=== PATIENT | female | born 1980 | race Caucasian/White ===

== ENCOUNTER 2023-01-29 16:13 | Emergency (ER) | payer BC ==
[~2023-01-29] VITALS: Ht 165.1 cm; Wt 100.0 kg
[~2023-01-29 16:13] MED LIST: NO HOME MEDS
[2023-01-29 17:22] LABS: BASOPHILS # (AUTO) 0.1 X10'3 (0-0.2); BASOPHILS % (AUTO) 0.9 % (0-1); EOSINOPHILS # (AUTO) 0.1 X10'3 (0-0.9); EOSINOPHILS % (AUTO) 1.6 % (0-6); HEMATOCRIT 44.2 % (35.0-45.0); HEMOGLOBIN 15.2 g/dl (12.0-16.0); LYMPHOCYTES # (AUTO) 1.7 X10'3 (1.1-4.8); LYMPHOCYTES % (AUTO) 19.5 % (21-51); MEAN CORPUSCULAR HGB CONC 34.4 g/dL (33.0-36.5); MEAN CORPUSCULAR VOLUME 92.9 FL (78-98); MEAN PLATELET VOLUME 8.7 FL (7.4-10.4); MONOCYTES # (AUTO) 0.5 X10'3 (0-0.9); MONOCYTES % (AUTO) 5.7 % (2-12); NEUTROPHILS # (AUTO) 6.2 X10'3 (1.8-7.7); NEUTROPHILS % (AUTO) 72.3 % (42-75); PLATELET COUNT 256 X10'3 (140-440); RED BLOOD COUNT 4.76 X10'6 (4.20-5.60); RED CELL DISTRIBUTION WIDTH 13.1 % (11.5-14.5); WHITE BLOOD COUNT 8.5 X10'3 (4.5-11.0)
[2023-01-29 17:27] VITALS: BP 103/83
[2023-01-29 17:41] LABS: ALANINE AMINOTRANSFERASE 17 U/L (12-78); ALBUMIN 3.5 G/DL (3.4-5.0); ALBUMIN/GLOBULIN RATIO 0.9 (1.1-1.5); ALKALINE PHOSPHATASE 74 IU/L (46-116); ANION GAP 8 (8-16); ASPARTATE AMINO TRANSFERASE 17 U/L (10-37); BILIRUBIN,TOTAL 0.4 MG/DL (0.1-1.0); BLOOD UREA NITROGEN 13 MG/DL (7-18); BUN/CREATININE RATIO 18.1 (6.6-38.0); CALCIUM 8.6 MG/DL (8.5-10.1); CHLORIDE 105 MMOL/L (99-107); CREATININE 0.72 MG/DL (0.40-0.90); GLUCOSE 90 MG/DL (70-104); POTASSIUM 3.4 MMOL/L (3.5-5.1); SODIUM 138 MMOL/L (135-145); TOTAL CARBON DIOXIDE 25.2 MMOL/L (24-32); TOTAL PROTEIN 7.2 G/DL (6.4-8.2); eGFR 89 ML/MIN
[2023-01-29 17:42] LABS: APTT 28 SECONDS (22-32)
== END 2023-01-29 18:26 | disposition home or self-care (01) ==
LOC: ER 16:14
DX: G62.9 Polyneuropathy, unspecified (principal); G89.29 Other chronic pain; M54.9 Dorsalgia, unspecified; F41.9 Anxiety disorder, unspecified; F12.10 Cannabis abuse, uncomplicated; Z98.890 Other specified postprocedural states; Z79.899 Other long term (current) drug therapy
CPT/HCPCS: 36415; 70450; 71045; 80053; 82948; 84484; 85025; 85610; 85730; 93005; 99285

== ENCOUNTER 2023-04-08 11:30 | Emergency (ER) | payer BC ==
[~2023-04-08] VITALS: Ht 165.1 cm; Wt 100.9 kg
--- NOTE | 2023-04-08 13:36 | NUR ---
PER DR ROSENTHAL NO STROKE WORKUP NEEDED
[2023-04-08] MEDS ORDERED: PRED20TA PO (15:12)
[2023-04-08] MEDS ORDERED: DEXT1DRO6 OP (15:12)
[2023-04-08] MEDS ORDERED: VALA10002 PO (15:12)
[2023-04-08 15:52] VITALS: BP 103/71
== END 2023-04-08 15:54 | disposition home or self-care (01) ==
LOC: ER 11:30
DX: G51.0 Bell's palsy (principal); G89.29 Other chronic pain; M54.9 Dorsalgia, unspecified; F41.9 Anxiety disorder, unspecified; F12.10 Cannabis abuse, uncomplicated; Z90.49 Acquired absence of other specified parts of digestive tract; Z79.899 Other long term (current) drug therapy
CPT/HCPCS: 99283

== ENCOUNTER 2023-05-29 07:09 | Emergency (ER) | payer BC ==
[~2023-05-29] VITALS: Ht 165.1 cm; Wt 90.0 kg
[~2023-05-29 07:09] MED LIST changes: +DEXT1DRO6 OP; +VALA10002 PO
[2023-05-29 07:18] VITALS: BP 123/91
[2023-05-29] MEDS ORDERED: ketorolac trometh inj. 60 MG/2 ML VIAL IM ONE (07:25)
[2023-05-29] MEDS ORDERED: HYDROcodone/acetaminophen 10/325mg tab PO ONE (07:25)
[2023-05-29] MEDS ORDERED: triamcinolone acetonide 40mg/ml inj IM ONE (07:25)
[2023-05-29] MEDS ORDERED: HYDR-3973 PO (07:41)
== END 2023-05-29 09:03 | disposition home or self-care (01) ==
LOC: ER 07:10
DX: R51.9 Headache, unspecified (principal); R53.1 Weakness; R11.2 Nausea with vomiting, unspecified; G89.29 Other chronic pain; G51.0 Bell's palsy; F12.90 Cannabis use, unspecified, uncomplicated; Z90.710 Acquired absence of both cervix and uterus; Z79.2 Long term (current) use of antibiotics; Z79.899 Other long term (current) drug therapy
CPT/HCPCS: 93005; 96372; 99284; J1885; J3301

== ENCOUNTER 2024-01-12 18:32 | Emergency (ER) | payer BC ==
[~2024-01-12] VITALS: Ht 165.1 cm; Wt 105.4 kg
[2024-01-12 21:32] VITALS: BP 142/88; PULSE 82; RESP 16; TEMP 98.2; O2SAT 99
== END 2024-01-12 21:36 | disposition home or self-care (01) ==
LOC: ER 18:33
DX: S91.114A Laceration without foreign body of right lesser toe(s) without damage to nail, initial encounter (principal); X58.XXXA Exposure to other specified factors, initial encounter; Y93.89 Activity, other specified; Y92.89 Other specified places as the place of occurrence of the external cause; Y99.8 Other external cause status
CPT/HCPCS: 12001; 99283; J7030; L3260

== ENCOUNTER 2024-06-01 15:04 | Emergency (ER) | payer BC, MEDICAID ==
[~2024-06-01] VITALS: Ht 165.1 cm; Wt 104.5 kg
[2024-06-01 15:08] VITALS: TEMP 98.4
[2024-06-01] MEDS: dexamethasone sod phosphate 10mg/ml inj IM STA (16:51)
[2024-06-01] MEDS ORDERED: HYDR-3965 PO (18:03)
[2024-06-01] MEDS ORDERED: PRED20TA PO (18:03)
[2024-06-01] MEDS: HYDROcodone/acetaminophen 10/325mg tab PO ONE (18:36)
[2024-06-01 18:37] VITALS: BP 127/72; PULSE 72; RESP 16; O2SAT 98
== END 2024-06-01 18:39 | disposition home or self-care (01) ==
LOC: ER 15:05
DX: M79.2 Neuralgia and neuritis, unspecified (principal); G89.29 Other chronic pain; M54.9 Dorsalgia, unspecified; F12.90 Cannabis use, unspecified, uncomplicated; F41.9 Anxiety disorder, unspecified; F20.9 Schizophrenia, unspecified; Z90.710 Acquired absence of both cervix and uterus; Z90.49 Acquired absence of other specified parts of digestive tract; Z98.890 Other specified postprocedural states; Z79.899 Other long term (current) drug therapy
CPT/HCPCS: 96372; 99283; J1100

== ENCOUNTER 2024-09-21 09:33 | Emergency (ER) | payer MEDICAID ==
[~2024-09-21] VITALS: Ht 165.1 cm; Wt 107.5 kg
[2024-09-21 09:47] VITALS: TEMP 97.5
[2024-09-21] MEDS: diphenhydrAMINE 50 mg/ml inj IV ONE (11:08)
[2024-09-21] MEDS: normal saline 1000ML IV soln IVB ONE (11:08)
[2024-09-21] MEDS: SUMAtriptan succ. 6 MG/0.5ml vial SQ ONE (11:08)
[2024-09-21] MEDS: metoclopramide 5 mg/ml inj IV ONE (11:09)
[2024-09-21] MEDS: ketorolac trometh 15mg/ml vial 15 MG/ML ML IV ONE (11:09)
[2024-09-21] MEDS: proCHLORperazine 10 MG/2 ml inj IV ONE (12:36)
[2024-09-21] MEDS: morphine 4 MG/ML inj SYRINge IV ONE (12:36)
[2024-09-21 13:01] VITALS: BP 133/52; PULSE 75; RESP 20; O2SAT 97
== END 2024-09-21 13:02 | disposition home or self-care (01) ==
LOC: ER 09:33
DX: G43.909 Migraine, unspecified, not intractable, without status migrainosus (principal); F12.90 Cannabis use, unspecified, uncomplicated; F31.9 Bipolar disorder, unspecified; Z90.710 Acquired absence of both cervix and uterus; Z98.890 Other specified postprocedural states
CPT/HCPCS: 96372; 96374; 96375; 99284; J0780; J1200; J1885; J2270; J2765; J3030; J7030

== ENCOUNTER 2025-05-29 11:31 | Emergency (ER) | payer MEDICAID ==
[~2025-05-29] VITALS: Ht 165.1 cm; Wt 113.6 kg
[2025-05-29 11:43] VITALS: BP 161/91; PULSE 76; O2SAT 99
--- NOTE | 2025-05-29 12:57 | Physician Documentation ---
History of Present Illness ~ Chief Complaint: Headache Stated Complaint: MIGRAINE Time Seen by MD: 12:40 Primary Medical Doctor: MARY WHITE HPI 44-year-old female who notes a history of complex migraines and presents today with the same. She denies any new symptoms from her typical presentation. Her symptoms do include some left-sided paresthesia. She has tried her nasal sumatriptan and her scheduled preventative, propranolol at home. These were not helpful. She was last seen in this emergency department for headache September of 2024. Denies any chills or fever, chest pain or shortness of breath. She does endorse nausea. 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 Physical Exam Vital Signs: Temperature: 97.5, Source: Temporal, Heart Rate: 76, Respiratory Rate: 16, BP: 161/91, Pulse Oximetry: 99, Weight: 113.640 Oxygen Flow Rate: 0 Physical Exam General: Alert, appears uncomfortable. HEENT: PERRL, EOMI, no injection, moist mucous membranes. Neck: Full range of motion. Respiratory: Lungs clear, no respiratory distress. Chest: No accessory muscle use. Cardiovascular: Regular rate and rhythm, no murmurs. Gastrointestinal: Soft, nontender, nondistended. Bowels sounds present. Extremities: Normal range of motion, no deformity. Neurologic: Oriented x4. Psychiatric: Normal mood and affect. Skin: Normal color, warm and dry. No edema, no ecchymosis. Progress Progress Note 1455: On re-evaluation, patient reports she feels much better and was ready to discharge. Her symptoms were alleviated with Toradol, prochlorperazine, diphenhydramine. She will be discharged and encouraged to follow up with her primary care provider. If she does not already see a neurologist for evaluation and treatment of her headaches, she may benefit from this referral. Results/Orders Results/Orders Completed Orders - JOVANNY GAMBINO NP Prochlorperazine Inj (Compazine Inj) (05/29/25 12:55) Diphenhydramine Capsule (Benadryl Capsul (05/29/25 12:55) Ketorolac Trometh 30mg/Ml Vial (Toradol (05/29/25 12:55) Medications Received in ER Medications (Trade) Dose Ordered Sig/Rosalba Route PRN Reason Start Time Stop Time Status Last Admin Dose Admin (Compazine inj) 10 mg ONCE ONCE IM 05/29/25 12:55 05/29/25 12:56 DC 05/29/25 13:54 10 MG (Benadryl capsule) 25 mg ONCE ONCE PO 05/29/25 12:55 05/29/25 12:56 DC 05/29/25 13:14 25 MG (Toradol inj. 30mg/ml) 30 mg ONCE ONCE IM 05/29/25 12:55 05/29/25 12:56 DC 05/29/25 13:53 30 MG Vital Signs 05/29/25 05/29/25 11:43 13:53 Temp 97.5 Pulse 76 Resp 16 16 B/P (MAP) 161/91 Pulse Ox 99 O2 Flow Rate 0 Medical Decision Making Differential Dx:Considerations: Include: LAUREANO-Cluster, LAUREANO-Migraine, LAUREANO-Hypertensive, LAUREANO-Muscular contraction, LAUREANO-Post lumbar puncture, Carbon monoxide toxicity, Close head injuyr, CVA, Fever induced, Hemorrhage-Epidural, Hemorrhage-Intracerebral, Hemorrhage-Subarachnoid, Hemorrhage-Subdural, Mass lesion, Meningitis, Post-traumtic, Pseudotumor cerebri, Sinusitis, Temporal arteritis, Trigeminal neuralgia Additional Comment With a history of complex migraines, presents with same today. Symptoms alleviated adequately with Toradol, prochlorperazine, diphenhydramine. Ap propriate for discharge home with primary care follow up at that time. Departure Time of Disposition: 14:56 Disposition: 01 HOME / SELF CARE / HOMELESS Impression: Primary Impression: Migraine Condition: Stable Discharge Instructions: Chronic Migraine Headache, [id number] Additional Instructions: Try the prescribed nurtec as needed. If you don't already see a neurologist, please request a referral from your PCP. Return if worse. Referrals: NO PRIMARY CARE PROVIDER (PCP) Prescriptions Rimegepant Sulfate (Nurtec Odt) 75 Mg Tab.rapdis 1 TAB PO QDAY PRN PRN for migraine for 30 Days, #8 TAB 0 Refills Prov: JOVANNY GAMBINO NP 05/29/25 Education Educated: Patient Educated regarding: diagnosis, treatment, prognosis, need for follow up Signature Scribe Signature: x Attestation: The note accurately reflects work and decisions made by me.Jovanny Ruiz NP 05/29/25 12:57 JOVANNY GAMBINO NP May 29, 2025 12:57
[2025-05-29 13:53] VITALS: RESP 16
[2025-05-29] MEDS: ketorolac trometh 30MG/ML vial 30 MG/ML VIAL IM ONE (13:53)
[2025-05-29] MEDS ORDERED: RIME75TA PO (14:57)
[2025-05-29 15:07] VITALS: TEMP 97.5
== END 2025-05-29 15:09 | disposition home or self-care (01) ==
LOC: ER 11:32
DX: G43.909 Migraine, unspecified, not intractable, without status migrainosus (principal); F12.90 Cannabis use, unspecified, uncomplicated; F41.9 Anxiety disorder, unspecified; F31.9 Bipolar disorder, unspecified; Z90.710 Acquired absence of both cervix and uterus; Z98.890 Other specified postprocedural states; Z79.899 Other long term (current) drug therapy
CPT/HCPCS: 96372; 99284; J0780; J1885; Q0163

== ENCOUNTER 2025-09-21 11:15 | Emergency (ER) | payer MEDICAID ==
[~2025-09-21] VITALS: Ht 165.1 cm; Wt 113.8 kg
[~2025-09-21 11:15] MED LIST changes: +RIME75TA PO
[2025-09-21 11:22] VITALS: TEMP 98.8
[2025-09-21] MEDS: normal saline 1000ml 1,000 ML IV ONE (15:06)
[2025-09-21] MEDS: ketorolac trometh 15mg/ml vial 15 MG/ML ML IV ONE (15:06)
[2025-09-21] MEDS: metoclopramide 5 mg/ml inj IV ONE (15:07)
--- NOTE | 2025-09-21 15:53 | Physician Documentation ---
History of Present Illness ~ Chief Complaint: Headache Stated Complaint: MIGRAINE Time Seen by MD: 13:59 Primary Medical Doctor: MARY GILL PALOMOSTUART HPI Is a 45-year-old female that presents to the emergency department for evaluation of a migraine headache. Patient reports he has a significant history of migraine headaches and this episode is consistent with her previous episodes. Patient reports that she does take medication regularly for migraines but today she is having a breakthrough migraine. Patient denies any other symptoms at this time. 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 Physical Exam Vital Signs: Temperature: 98.8, Source: Temporal, Heart Rate: 85, Respiratory Rate: 14, BP: 130/83, Pulse Oximetry: 100, Weight: 113.800 Oxygen Flow Rate: 0 Physical Exam VITALS: Reviewed and as above. GENERAL: Alert, no apparent distress. HEENT: Normocephalic, atraumatic, PERRL, EOMI, dry mucosa, no erythema RESPIRATORY: Lungs clear, normal breath sounds, no respiratory distress. CHEST: No accessory muscle use, no retractions CV: Regular rate, rhythm, no edema, no murmur, No: JVD GI: Soft, non-tender, bowels sounds present, no rebound, guarding, or rigidity BACK: No CVA tenderness, or swelling MUSCULOSKELETAL No deformities, no edema SKIN: Warm and dry, no rash NEURO: Oriented x4, No motor or sensory deficit, patient demonstrates sensit ivity to light during examination, patient reports this is consistent with her typical migraine presentation. PSYCH: Normal mood and affect, no agitation Progress Results/Orders Results/Orders Orders - JEVON COX * Iv Access / Saline Lock * (09/21/25 14:19) Acetaminophen 1,000mg/100ml Iv (Ofirmev (09/21/25 20:00) Completed Orders - JEVON COX NETWORK OPERATIONS MANAGER Ketorolac Trometh 15mg/Ml Vial (Toradol (09/21/25 14:20) Metoclopramide Inj (Reglan Inj) (09/21/25 14:20) Diphenhydramine Inj (Benadryl Inj.) (09/21/25 14:20) Normal Saline 1000ml (0.9% Sodium Chlori (09/21/25 14:20) Medications Received in ER Medications (Trade) Dose Ordered Sig/Rosalba Route PRN Reason Start Time Stop Time Status Last Admin Dose Admin (Toradol injection) 30 mg ONCE ONCE IV 09/21/25 14:20 09/21/25 14:22 DC 09/21/25 15:06 30 MG (Reglan inj) 10 mg ONCE ONCE IV 09/21/25 14:20 09/21/25 14:22 DC 09/21/25 15:07 10 MG (Benadryl inj.) 25 mg ONCE ONCE IV 09/21/25 14:20 09/21/25 14:22 DC 09/21/25 15:07 25 MG Sodium Chloride 1,000 ml @ 1,000 mls/hr ONCE ONCE IV 09/21/25 14:20 09/21/25 15:19 DC 09/21/25 15:06 1,000 MLS/HR Vital Signs 09/21/25 09/21/25 11:22 15:06 Temp 98.8 Pulse 85 Resp 16 14 B/P (MAP) 130/83 Pulse Ox 100 O2 Flow Rate 0 Medical Decision Making Additional information obtaine: other Findings 45-year-old female with a history of migraines presented to the ED with a severe, intractable migraine unresponsive to her usual home medications. Initial assessment confirmed typical migraine features (throbbing pain, photophobia, phonophobia, nausea) without focal neurologic deficits or red flag symptoms (abrupt onset, age ?50, cancer, immunosuppression, headache provoked by activity/posture). Acute management included a standard ED migraine cocktail: intravenous metoclopramide, diphenhydramine, ketorolac, acetaminophen, and IV fluids. This regimen is supported by current emergency medicine guidelines and literature, which recommend non-opioid therapies and antiemetics for acute migraine, with opioids discouraged due to risk of medication overuse and poor efficacy. The patient experienced significant improvement in symptoms following treatment. No evidence of secondary headache or complications was identified. Patient was counseled on red flag symptoms (sudden severe headache, persistent neurologic deficits, fever, neck stiffness, altered mental status) and instructed to return to the ED if these occur.She was advised to follow up with her primary care provider for ongoing migraine management, including consideration of preventive therapy if attacks remain frequent or disabling. Discharge instructions included education on medication overuse headache, importance of early treatment at onset, and lifestyle modifications (hydration, regular meals, sleep hygiene, exercise, stress management).[6] No new prescriptions were provided at discharge, as symptoms resolved, but outpatient review of acute and preventive options (NSAIDs, triptans, gepants, preventive agents) is recommended if attacks persist. Patient is stable for discharge. Return precautions and follow-up plan discussed and documented. Differential Dx:Considerations: Include: LAUREANO-Cluster, LAUREANO-Migraine, LAUREANO- Hypertensive, LAUREANO-Muscular contraction, LAUREANO-Post lumbar puncture, Carbon monoxide toxicity, Close head injuyr, CVA, Fever induced, Hemorrhage-Epidural, Hemorrhage-Intracerebral, Hemorrhage-Subarachnoid, Hemorrhage-Subdural, Mass lesion, Meningitis, Post-traumtic, Pseudotumor cerebri, Sinusitis, Temporal arteritis, Trigeminal neuralgia, Other Departure Disposition: 01 HOME / SELF CARE / HOMELESS Impression: Primary Impression: Headache Additional Impression: Migraine Discharge Instructions: Headache, Chronic Migraine Headache, [id number] Additional Instructions: You were treated in the emergency department today for a severe migraine. Your symptoms improved after receiving medications and fluids. Please review the following instructions to help manage your migraines and know when to seek further care. 1. Migraine Management at Home Take your prescribed migraine medications as soon as you feel a migraine starting. Early treatment works best. Common medications include acetaminophen (Tylenol), nonsteroidal anti- inflammatory drugs (NSAIDs) like ibuprofen or naproxen, and migraine-specific medications such as triptans (sumatriptan, eletriptan) or newer options like gepants (ubrogepant). If you have nausea or vomiting, anti-nausea medicines may help. Do not use opioid pain medications or medicines containing butalbital for migrainethey can cause more headaches and other problems. 2. Preventing Future Migraines Keep a headache diary to track your symptoms, triggers, and how well treatments work. Avoid known triggers such as certain foods, dehydration, skipping meals, poor sleep, and stress. Stay hydrated, eat regular meals, get enough sleep, and exercise regularly. If you have frequent or severe migraines, talk to your primary care provider about preventive medications. 3. Medication Overuse Warning Using pain medicines (like NSAIDs or triptans) too often can cause more headaches. If you need these medicines more than 10-15 days per month, let your doctor know. 4. When to Seek Immediate Medical Care Return to the emergency department or call 911 if you have any of these warning signs: Sudden, severe headache (worst headache of your life) Headache with fever, neck stiffness, or rash Headache after a head injury Persistent vomiting or confusion Weakness, numbness, trouble speaking, vision changes, or fainting. 5. Follow-Up Schedule a follow-up visit with your primary care provider to review your migraine treatment plan and discuss preventive options if needed. If you have any questions or your symptoms return or worsen, please contact your doctor or return to the emergency department. Referrals: NO PRIMARY CARE PROVIDER (PCP) Education Educated: Patient Educated regarding: diagnosis, treatment, need for follow up Signature Scribe Signature: A Attestation: Scribed for Jevon Cox by MARÍA Hawthorne . 09/21/25 15:53 JEVON COX Sep 21, 2025 15:53
[2025-09-21] MEDS: acetaminophen 1,000mg/100ml IV 100 ML IV SCH (16:34)
[2025-09-21 16:42] VITALS: BP 115/62; PULSE 65; RESP 20; O2SAT 100
== END 2025-09-21 16:43 | disposition home or self-care (01) ==
LOC: ER 11:16
DX: G43.909 Migraine, unspecified, not intractable, without status migrainosus (principal); F31.9 Bipolar disorder, unspecified; F41.9 Anxiety disorder, unspecified; F12.90 Cannabis use, unspecified, uncomplicated; Z90.710 Acquired absence of both cervix and uterus; Z98.890 Other specified postprocedural states
CPT/HCPCS: 96361; 96374; 96375; 99284; J1200; J1885; J2765; J7030

== ENCOUNTER 2025-10-19 16:12 | Outpatient (CLI) | payer MEDICAID ==
--- NOTE | 2025-10-19 18:39 | RADIOLOGY REPORT ---
EXAM: MR MRI LOWER EXTREMITY LEFT HISTORY: PAIN IN LEFT KNEE;CHONDROMALACIA, LEFT KNEE COMPARISON: None TECHNIQUE: Multiplanar, multisequence imaging of the left knee was performed without contrast FINDINGS: MEDIAL COMPARTMENT: Intact medial meniscus. No focal chondrosis or subchondral edema. LATERAL COMPARTMENT: Intact lateral meniscus. No focal chondrosis or subchondral edema. PATELLOFEMORAL COMPARTMENT: Tibial tubercle trochlear groove distance measures 17 mm. Overall correlate with clinical exam to exclude trace patellar maltracking (patellar tendon lateral femoral condylar friction syndrome). No focal chondrosis or subchondral edema. CRUCIATE LIGAMENTS: Intact anterior and posterior cruciate ligaments. MEDIAL SUPPORTING STRUCTURES: Intact medial collateral ligament. LATERAL SUPPORTING STRUCTURES: Intact iliotibial band, lateral capsular ligament, fibular collateral ligament, popliteus, and biceps femoris tendons EXTENSOR MECHANISM: Intact JOINT SPACE/FLUID: Trace knee joint fluid. BONES: No acute fracture, osseous contusion, or aggressive focal osseous lesion MUSCLES: Trace amount of edema of the superolateral aspect of Hoffa's fat pad. Normal in signal intensity and morphology NEUROVASCULAR: Unremarkable OTHER: None IMPRESSION: 1. Trace amount of edema of the superolateral aspect of Hoffas fat pad. 2. Overall correlate with clinical exam to exclude trace patellar maltracking (patellar tendon lateral femoral condylar friction syndrome). 3. No meniscal or cruciate ligamentous injury.
== END 2025-10-19 23:59 | disposition home or self-care (01) ==
LOC: MRI02 16:12
PROVIDERS: ATTEND Pediatrics Sports Medicine
DX: M25.562 Pain in left knee (principal); M25.561 Pain in right knee; M94.261 Chondromalacia, right knee; M94.262 Chondromalacia, left knee
CPT/HCPCS: 73721

== ENCOUNTER 2025-10-31 15:34 | Inpatient (IN) | payer MEDICAID ==
[~2025-10-31] VITALS: Ht 165.1 cm; Wt 108.5 kg
--- NOTE | 2025-10-31 16:00 | ELECTROCARDIOGRAPH REPORT ---
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
--- NOTE | 2025-10-31 16:06 | RADIOLOGY REPORT ---
CT CT STROKE ALERT INDICATION: Stroke Alert EXAM DATE: 10/31/2025 03:39 PM COMPARISON: CT STROKE ALERT on DOS: 01/29/23 TECHNIQUE: CT of the head without intravenous contrast. RADIATION DOSE: CTDIvol: 58 mGy, DLP: 1185 mGy*cm FINDINGS: There is no intracranial hemorrhage. There is no extra-axial fluid, mass, mass effect or midline shift. The ventricles are midline and normal in size. Basilar cisterns are patent. Marquez-white differentiation is maintained. Mastoids well pneumatized. Left maxillary sinus mucosal thickening. Severe right maxillary sinus mucosal thickening and retention cyst/polyps.. Imaged portion of the orbits are unremarkable. IMPRESSION: No intracranial hemorrhage or mass effect. Paranasal sinus disease.
[2025-10-31 16:12] LABS: MEAN PLATELET VOLUME 9.1 FL (7.4-10.4); RED CELL DISTRIBUTION WIDTH 13.4 % (11.5-14.5)
[2025-10-31] MEDS: normal saline 1000ml 1,000 ML IV ONE (16:22)
[2025-10-31] MEDS: ketorolac trometh 15mg/ml vial 15 MG/ML ML IV ONE (16:22)
--- NOTE | 2025-10-31 16:26 | RADIOLOGY REPORT ---
EXAM: DI CHEST,SINGLE VIEW TECHNIQUE: Single frontal chest radiograph CLINICAL HISTORY: Stroke Alert COMPARISON: CHEST,SINGLE VIEW on DOS: 01/29/23 FINDINGS/IMPRESSION: The lungs are clear. The cardiomediastinal silhouette is unchanged. No pleural effusion or pneumothorax. No acute osseous abnormality.
[2025-10-31 16:29] LABS: APTT 29 SECONDS (22-32); INR 1.0 INR
[2025-10-31 16:55] LABS: CREATININE 1.11 MG/DL (0.40-0.90); TOTAL CARBON DIOXIDE 25.2 MMOL/L (24-32); eCRCL 58 ML/MIN; eGFR 53 ML/MIN
--- NOTE | 2025-10-31 16:57 | Physician Documentation ---
History of Present Illness ~ Chief Complaint: Stroke Alert Stated Complaint: DIZZINESS Time Seen by MD: 15:50 OK to notify your PCP?: Yes Primary Medical Doctor: MARY WHITE Mode of Arrival: POV, Ambulatory HPI A 45 years old female with history of hemiplegic migraines presented to the ER with dizziness which was started around 2:00 p.m. today afternoon. 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 Patient denies any fall or loss of consciousness. Denies any alcohol intake or drug use. Patient denies any spinning sensation or tinnitus. She has taking Botox injections for hemiplegic migraine once in a month. Medication Reconciliation Allergies: Coded Allergies: No Known Allergies (Unverified , 09/21/25) Scheduled Atomoxetine HCl (Atomoxetine HCl), 1 CAP PO QAM, (Reported) Cariprazine Hydrochloride (Vraylar), 1 CAP PO DAILY, (Reported) Diclofenac Sodium (Diclofenac Sodium), 1 TAB PO BID, (Reported) Escitalopram Oxalate (Escitalopram Oxalate), 20 MG PO DAILY, (Reported) Lisdexamfetamine Dimesylate (Vyvanse), 1 CAP PO QAM, (Reported) Meloxicam (Meloxicam), 1 TAB PO DAILY, (Reported) Spironolactone (Spironolactone), 1 TAB PO BID, (Reported) Scheduled PRN Prazosin Hcl (Prazosin Hcl), 2-3 CAP PO HS PRN for insomnia, (Reported) Propranolol Hcl (Propranolol Hcl), 1 TAB PO TID PRN for panic attack, (Reported) Rimegepant Sulfate (Nurtec Odt), 1 TAB PO QDAY PRN PRN for migraine [lorazepam], 0.5 MG PO TID PRN for anxiety, (Reported) Miscellaneous Medications Lamotrigine (LaMICtal tablet), PO, (Reported) Discontinued Medications Dextran 70/Hypromellose (Artificial Tears), 1 EACH OP Q2H Discontinued Reason: Other Valacyclovir HCl (Valtrex), 1 TAB PO TID Discontinued Reason: patient no longer taking Past Medical History 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*, Chronic Back Pain, Anxiety, Bipolar Other Past Medical History: Hemiplegic migraines, anxiety, depression Past Surgical History: hysterectomy, tonsillectomy Other Past Surgical History: ovarian cyst removal, sinus cyst removal, hysterectomy Alcohol Use: Rarely Drug Use: marijuana Lives with: Family Lives In: Home Physical Exam Vital Signs: Temperature: 98.6, Source: Oral, Heart Rate: 72, Respiratory Rate: 14, BP: 149/96, Pulse Oximetry: 98, Weight: 108.500 Oxygen Flow Rate: 0 Physical Exam Awake , alert and oriented to time,place, person,not in distress HEENT: Atraumatic, normocephalic, PERRLA, EOMI, anicteric sclera ; pink c onjunctiva, moist mucos membranes Neck: Trachea midline. Supple, normal range of motion, no JVD, no lymphadenopathy Chest and Respiratory: Equal breath sounds bilaterally, no tachypnea, wheezing, ronchi,rubs .Chest wall is symmetric and without deformity. Cardiac: S1, S2 heard,Regular rate and rhythm, no murmurs ,no gallops, no rubs. Abdomen: Soft, No tenderness, No guarding or rigidity, Lyle's sign negative. normal bowel sounds x4 quadrant, no hepatosplenomegaly MSK: Range of motion of all extremities are normal. There is no joint pain or joint swelling or joint erythema. There is no muscle pain or tenderness or swelling. Extremities: warm, well-perfused, No cyanosis, clubbing, 2+ pulses felt Neurological: Mental status exam: alert and consciousness, orientation, memory, speech - Cranial nerve test: Cranial nerves II-XII intact. - Motor system: Normal Nutrition, normal tone, Power 5/5, no involuntary movements - Sensory system: Intact - Reflex testing: Biceps, triceps and knee reflexes 2+ - Cerebellar: Normal Skin: Warm and dry Psychiatry: Affect and mood are normal Progress Progress Note A 45 years old female with history of hemiplegic migraines presented to the ER with dizziness which was started around 2:00 p.m. today afternoon. 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 Patient denies any fall or loss of consciousness. Denies any alcohol intake or drug use. CT head Showed no acute intracranial abnormality. IV normal saline 1000 mL bolus, IV Compazine and IV Toradol was given .Teleneurology was consulted Results/Orders Results/Orders Orders - JJ BOLANOS MD Monitor (10/31/25 15:44) 2 Large Bore Ivs (10/31/25 15:44) Chest,Single View (10/31/25 15:44) Accucheck (10/31/25 15:44) Ct Stroke Alert (10/31/25 15:53) [place] [facility] Consult (10/31/25 15:44) Page Hospitalist (10/31/25 17:11) Fill Out Med Reconciliation (10/31/25 17:11) Completed Orders - JJ BOLANOS MD Cbc/Diff (10/31/25 15:44) Electrocardiogram (10/31/25 15:44) Chest,Single View (10/31/25 15:44) Ct Stroke Alert (10/31/25 15:53) BMP (10/31/25 15:44) PTT (10/31/25 15:44) Pt Inr (10/31/25 15:44) Hs Troponin I W Calculations (10/31/25 15:44) [place] [facility] Consult (10/31/25 15:44) Drug Screen, Urine (10/31/25 15:44) Laboratory Tests Test 10/31/25 15:41 10/31/25 16:01 Glucometer 122 H White Blood Count 9.0 Red Blood Count 4.89 Hemoglobin 15.4 Hematocrit 44.3 Mean Corpuscular Volume 90.7 Mean Corpuscular Hemoglobin 31.5 H Mean Corpuscular Hemoglobin Concent 34.8 Red Cell Distribution Width 13.4 Platelet Count 258 Mean Platelet Volume 9.1 Neutrophils (%) (Auto) 78.0 H Lymphocytes (%) (Auto) 13.8 L Monocytes (%) (Auto) 5.9 Eosinophils (%) (Auto) 1.4 Basophils (%) (Auto) 0.9 Neutrophils # (Auto) 7.0 Lymphocytes # (Auto) 1.2 Monocytes # (Auto) 0.5 Eosinophils # (Auto) 0.1 Basophils # (Auto) 0.1 CBC Comment Prothrombin Time 10.5 INR International Normalized Ratio 1.0 Activated Partial Thromboplast Time 29 Coagulation Comments Sodium Level 137 Potassium Level 3.4 L Chloride Level 102 Carbon Dioxide Level 25.2 Anion Gap 10 Blood Urea Nitrogen 13 Creatinine 1.11 H Estimated GFR/1.73 m2 53 BUN/Creatinine Ratio 11.7 Glucose Level 112 H Calcium Level 8.9 Troponin I High Sensitivity < 4 L Troponin I High Sens Percent Delta Troponin I Hi Sens Absolute Change Albumin 3.6 Chemistry Comments EKG/XRAY/CT/US/VASC/MRI EKG : Additional Comment * * EKG as interpreted by [facility] indicating normal sinus rhythm with a rate of 79 bpm, no ischemia, normal axis Chest X-Ray : Interpreted By: both Lungs: normal Mediastinum: normal Ribs/Bones: normal Impression: no acute disease Additional Comments EXAM: DI CHEST,SINGLE VIEW TECHNIQUE: Single frontal chest radiograph CLINICAL HISTORY: Stroke Alert COMPARISON: CHEST,SINGLE VIEW on DOS: 01/29/23 FINDINGS/IMPRESSION: The lungs are clear. The cardiomediastinal silhouette is unchanged. No pleural effusion or pneumothorax. No acute osseous abnormality. : Impression CT CT STROKE ALERT INDICATION: Stroke Alert EXAM DATE: 10/31/2025 03:39 PM COMPARISON: CT STROKE ALERT on DOS: 01/29/23 TECHNIQUE: CT of the head without intravenous contrast. RADIATION DOSE: CTDIvol: 58 mGy, DLP: 1185 mGy*cm FINDINGS: There is no intracranial hemorrhage. There is no extra-axial fluid, mass, mass effect or midline shift. The ventricles are midline and normal in size. Basilar cisterns are patent. Marquez-white differentiation is maintained. CT CTA NECK/HEAD INDICATION: left side weakness and facial droop TECHNIQUE: CT angiography along with MIP and MPR images were obtained of the [place] arteries. CT angiography along with MIP and MPR images were obtained of the cervical carotid and vertebral arteries. All CT scans at this facility use dose modulation, iterative reconstruction, and/or weight based dosing when appropriate to reduce radiation dose to as low as reasonably achievable. 3-D postprocessing was performed on a separate workstation under radiologist supervision. IV CONTRAST: 100 mL of low osmolar intravenous iodinated contrast material was administered. COMPARISON: None FINDINGS: ANTERIOR CIRCULATION: Distal internal carotid arteries including the petrous, cavernous, and supraclinoid segments are patent bilaterally.Anterior cerebral arteries including the A1 and A2 segments are patent bilaterally.Anterior communicating artery patent without aneurysm formation.Middle cerebral arteries including the horizontal M1 and sylvian M2 are patent bilaterally.Congenitally absent versus hypoplastic posterior communicating arteries. POSTERIOR CIRCULATION: Posterior cerebral arteries are patent bilaterally.Vertebral arteries are codominantThe intracranial segments of the vertebral arteries are patent bilaterally.The basilar artery is patent without aneurysm formation.The posterior inferior cerebellar arteries are patent bilaterally. CERVICAL VESSELS: The thoracic aortic arch is patent without evidence of aneurysmal dilatation or dissection.The right common carotid artery, carotid bulb, and cervical segment of the right internal carotid artery are patentThe left common carotid artery, carotid bulb, and cervical segment of the left internal carotid artery are patentThe cervical segments of the vertebral arteries are patent OTHER: The lung apices are clear. Left thyroid lobe nodule/enlargement measuring up to 2.8 cm and consider nonemergent left ultrasound of the thyroid. Question sequelae of prior right maxillary antrostomy mild less than 25 percent opacification of the [id number]-[id number]-[id number]-left maxillary sinuses. IMPRESSION: 1. No large vessel occlusion, aneurysmal dilatation, or dissection seen within the intracranial vessels. 2. No hemodynamically significant stenosis, aneurysmal dilatation, or dissection seen within the cervical vessels. 3. No CT evidence of an acute intracranial process. 4. Left thyroid lobe nodule/enlargement measuring up to 2.8 cm and consider nonemergent left ultrasound of the thyroid. Mastoids well pneumatized. Left maxillary sinus mucosal thickening. Severe right maxillary sinus mucosal thickening and retention cyst/polyps.. Imaged portion of the orbits are unremarkable. IMPRESSION: No intracranial hemorrhage or mass effect. Paranasal sinus disease. Medical Decision Making Additional information obtaine: N/A Findings CT head- no acute intracranial abnormality CTA head and neck Chest x-ray 2 large-bore IVs CBC BMP PT INR APTT Troponins Teleneurology consultation Urine drug screen Differential Dx:Considerations: Include: electrolyte imbalance, hypoglycemia, hypotension, vertigo peripheral Additional Information Differentials include: Hemiplegic migraine, stroke, dizziness, orthostatic hypotension 45-year-old female presenting with a likely hemiplegic migraine. She was assessed by telling neurology in the ED. They assess that this is likely a hemiplegic migraine however CVA and TIA need to be ruled out. Her labs and imaging including CT head and CT angiogram of the head and neck were both unremarkable. Patient will be admitted to the hospitalist service with neurology consultation. Departure Disposition: ADMITTED INPATIENT Admitted to Inpatient Unit: to hospitalist Admission Level of Care: Neuro with Tele Impression: Primary Impression: Dizziness Additional Impressions: Left-sided weakness Hemiplegic migraine Condition: Guarded Referrals: NO PRIMARY CARE PROVIDER (PCP) Signature Scribe Signature: No Scribe Attestation: Resident attestation Patient was seen, examined and discussed with the attending physician Bjorn Seo MD Internal Medicine Resident, PGY 1 I saw and discussed the patient with the resident. The note accurately reflects work and decisions made by me.Jj Ruiz MD 11/06/25 13:19 ROMINA SEO, RES Oct 31, 2025 16:57 JJ BOLANOS MD Oct 31, 2025 17:38
--- NOTE | 2025-10-31 17:37 | RADIOLOGY REPORT ---
CT CTA NECK/HEAD INDICATION: left side weakness and facial droop TECHNIQUE: CT angiography along with MIP and MPR images were obtained of the [place] arteries. CT angiography along with MIP and MPR images were obtained of the cervical carotid and vertebral arteries. All CT scans at this facility use dose modulation, iterative reconstruction, and/or weight based dosing when appropriate to reduce radiation dose to as low as reasonably achievable. 3-D postprocessing was performed on a separate workstation under radiologist supervision. IV CONTRAST: 100 mL of low osmolar intravenous iodinated contrast material was administered. COMPARISON: None FINDINGS: ANTERIOR CIRCULATION: Distal internal carotid arteries including the petrous, cavernous, and supraclinoid segments are patent bilaterally.Anterior cerebral arteries including the A1 and A2 segments are patent bilaterally.Anterior communicating artery patent without aneurysm formation.Middle cerebral arteries including the horizontal M1 and sylvian M2 are patent bilaterally.Congenitally absent versus hypoplastic posterior communicating arteries. POSTERIOR CIRCULATION: Posterior cerebral arteries are patent bilaterally.Vertebral arteries are codominantThe intracranial segments of the vertebral arteries are patent bilaterally.The basilar artery is patent without aneurysm formation.The posterior inferior cerebellar arteries are patent bilaterally. CERVICAL VESSELS: The thoracic aortic arch is patent without evidence of aneurysmal dilatation or dissection.The right common carotid artery, carotid bulb, and cervical segment of the right internal carotid artery are patentThe left common carotid artery, carotid bulb, and cervical segment of the left internal carotid artery are patentThe cervical segments of the vertebral arteries are patent OTHER: The lung apices are clear. Left thyroid lobe nodule/enlargement measuring up to 2.8 cm and consider nonemergent left ultrasound of the thyroid. Question sequelae of prior right maxillary antrostomy mild less than 25 percent opacification of the mswyy-ocosjls-jhbw-left maxillary sinuses. IMPRESSION: 1. No large vessel occlusion, aneurysmal dilatation, or dissection seen within the intracranial vessels. 2. No hemodynamically significant stenosis, aneurysmal dilatation, or dissection seen within the cervical vessels. 3. No CT evidence of an acute intracranial process. 4. Left thyroid lobe nodule/enlargement measuring up to 2.8 cm and consider nonemergent left ultrasound of the thyroid.
[2025-10-31] MEDS ORDERED: mag hydrox/Alum hydrox/simeth 30ml oral suspension PO PRN (17:40)
[2025-10-31] MEDS ORDERED: magnesium sulf-water 2g/50mL 50 ML IV PRN (17:40)
[2025-10-31] MEDS ORDERED: magnesium sulf-water 4G/100mL 100 ML IV PRN (17:40)
[2025-10-31] MEDS ORDERED: potassium Cl 20 mEq SR tablet PO PRN (17:40)
[2025-10-31] MEDS ORDERED: ondansetron/PF 4mg/2ml inj IV PRN (17:40)
[2025-10-31] MEDS ORDERED: potassium Cl 40MEQ/1/2NS 520ml 520 ML IV PRN (17:40)
--- NOTE | 2025-10-31 18:29 | HISTORY AND PHYSICAL ---
History & Physical Providers to CC ~ History of Present Illness Reason for Admit\Complaint: Left hemiplegia History of Present Illness This is a 45-year-old female who has a four year history of hemiplegic migraine headaches. She gets a couple of episodes a month they typically last 15 minutes to a few hours she is to the point where she is getting Botox injections for these headaches monthly. The patient has not noticed today's symptoms are slightly different than her typical headaches for one she does not have a headache with the episode she also mentions that she typically has a numbness on the left side of her face and that her extremities are not affected (accept for one prior episode) today the headache started at 2:00 p.m. and is affecting the left side of her face where she noticed initially noticed itching and then pins and needle sensation followed by inability open her left eye as well as a weakness in her left upper and lower extremity which has persisted. The patient is also mentioned that the onset of her symptoms today were faster than her prior episodes. Tele neurologist evaluated the patient and recommended ordering an MRI of the head. A CTA of the head is negative for any acute CVA. Allergies: Coded Allergies: No Known Allergies (Unverified , 09/21/25) Home Medications Home Medications Active Nurtec Odt (Rimegepant Sulfate) 75 Mg Tab.rapdis 1 Tab PO QDAY PRN PRN 30 Days Valtrex (Valacyclovir HCl) 1,000 Mg Tablet 1 Tab PO TID 7 Days Artificial Tears (Dextran 70/Hypromellose) 1 Each Droperette 1 Each OP Q2H 14 Days Reported No Home Medications (Home Med List) Each Past Medical History Past Medical History Hemiplegic migraines, chronic back pain, asthma, bipolar disorder/anxiety/PTSD Past Surgical History Surgical History Comment Hysterectomy, tonsillectomy, left shoulder surgery Family History Family History: FH: migraine headache Maternal grandmother Maternal grandfather FH: thyroid cancer MOTHER Past Social History Social History Comment Nonsmoker, does not drink alcohol, smokes marijuana at night, does not use illicit drugs. Full code status. ROS ROS Except for positives in the HPI the rest of the 14 point review systems is negative Exam Vitals: Vital Signs Date Time Temp Pulse Resp B/P (MAP) Pulse Ox O2 Delivery O2 Flow Rate FiO2 10/31/25 17:17 69 114/77 68 126/76 88 119/76 10/31/25 16:08 14 98 0 10/31/25 15:36 98.6 General: Gen. No acute distress alert and oriented 4 HEENT left eyelid palsy Lungs clear to ascultation bilaterally, no wheezes rales or rhonchi appreciated Heart normal sinus rhythm no murmurs rubs or clicks noted Abdomen soft nontender bowel sounds are normoactive Lower extremities no clubbing cyanosis, nor edema appreciated bilaterally Neuro muscle strength is 5/5 in the upper and lower extremities on the right, 4/5 for the upper extremities on the left Diagnostic Data Last Recorded Lab Results: 10/31/25 1601 10/31/25 1601 Diagnostic Data: Laboratory Tests Test 10/31/25 16:01 Prothrombin Time 10.5 SECONDS (9.0-12.0) INR International Normalized Ratio 1.0 INR Activated Partial Thromboplast Time 29 SECONDS (22-32) Coagulation Comments Advance Care Planning Advanced Care plannin - 30 Minutes Problems: (1) Left-sided weakness Status: Acute Additional Plan # left-sided hemiplegia with left eyelid palsy Possibly secondary to hemiplegic migraine however the patient does not have a headache with this episode which is not consistent with prior episodes Tele neurology consult has been obtained awaiting neurologists documentation Head CT scan was negative CTA of the head and neck were negative for any large vessel occlusion aneurysmal dilatation or dissection MRI of the head is ordered Physical therapy Echocardiogram with bubble study # 2.8 cm left thyroid nodule/ enlargement on CTA Thyroid ultrasound # hypokalemia On potassium replacement protocol # bipolar disorder # anxiety # PTSD Awaiting med reconciliation # asthma not in acute exacerbation Monitor for any respiratory distress and add nebulizer treatments if needed. # DVT prophylaxis SCDs I spent a total of 16 minutes on reviewing various resuscitative measures/ ACP with the patient at the time of admission. The patient has decided on full code status Date of Service: Oct 31, 2025 Billing Provider: HEATHER CASTAÑEDA DO Common Visit Codes: 91224-GUOGNYV INP/OBS CARE (HIGH) Secondary Visit Codes: 15718-OBJDOWKR CARE PLAN 30 MINUTES HEATHER CASTAÑEDA DO Oct 31, 2025 18:29
[2025-10-31] MEDS: K and/or MAG REPLACEMENT MC SCH (20:00)
[2025-10-31] MEDS: normal saline 1000ml 1,000 ML IV SCH (20:28)
[2025-10-31] MEDS: docusate sod 100mg capsule PO SCH (20:33)
[2025-10-31] MEDS ORDERED: MELO-102 PO (21:27)
[2025-10-31] MEDS ORDERED: LISD20CA PO (21:27)
[2025-11-01] VITALS (9 sets, daily range): BP systolic 99–149; BP diastolic 49–81; PULSE 61–84; RESP 17–24; TEMP 97.3–98.6; O2SAT 97–98
[2025-11-01 00:23] LABS: URINE AMPHETAMINE SCREEN POSITIVE (Neg); URINE BARBITUATE SCREEN NEGATIVE (Neg); URINE BENZODIAZEPINES SCREEN NEGATIVE (Neg); URINE CANNABINOID SCREEN POSITIVE (Neg); URINE COCAINE SCREEN NEGATIVE (Neg); URINE METHADONE SCREEN NEGATIVE (Neg); URINE OPIATE SCREEN NEGATIVE (Neg); URINE PHENCYCLIDINE SCREEN NEGATIVE (Neg)
[2025-11-01 00:25] LABS: LEUKOCYTE ESTERASE ,URINE NEGATIVE (Neg); NITRITES, URINE NEGATIVE (Neg); OCCULT BLOOD,URINE NEGATIVE (Neg)
[2025-11-01 00:26] LABS: UA COLLECTION TYPE NON-SPECIFIED
[2025-11-01] MEDS ORDERED: ESCI20TA39 PO (00:56)
[2025-11-01] MEDS ORDERED: CARI3CAP PO (01:03)
[2025-11-01] MEDS ORDERED: PRAZ1CAP5 PO (01:03)
[2025-11-01] MEDS ORDERED: SPIR50TA5 PO (01:03)
[2025-11-01] MEDS ORDERED: DICL75TA5 PO (01:03)
[2025-11-01] MEDS ORDERED: LAMO100T PO (01:03)
[2025-11-01] MEDS ORDERED: PROP20TA6 PO (01:03)
[2025-11-01] MEDS ORDERED: lorazepam PO (01:03)
[2025-11-01] MEDS ORDERED: ATOM25CA6 PO (01:03)
[2025-11-01] MEDS: potassium Cl 20 mEq SR tablet PO PRN (02:03)
[2025-11-01 06:50] LABS: MEAN PLATELET VOLUME 9.4 FL (7.4-10.4); RED CELL DISTRIBUTION WIDTH 13.4 % (11.5-14.5)
[2025-11-01 07:00] LABS: CREATININE 0.77 MG/DL (0.40-0.90); TOTAL CARBON DIOXIDE 25.1 MMOL/L (24-32); eCRCL 84 ML/MIN; eGFR 81 ML/MIN
[2025-11-01] MEDS ORDERED: RIMEGEPANT SULFATE 75 MG PO PRN (08:00)
[2025-11-01] MEDS ORDERED: non-formulary drug (Diclofenac Sodium 1 TAB) PO SCH (08:00)
[2025-11-01] MEDS ORDERED: VALACYCLOVIR HCL PO SCH (08:00)
[2025-11-01] MEDS: atomoxetine 25mg capsule PO SCH (11:11)
[2025-11-01] MEDS: ESCITALOPRAM 10 mg tablet 10 MG TABLET PO SCH (11:12)
[2025-11-01] MEDS: lisdexamfetamine dimesylate 10mg capsule PO SCH (11:12)
[2025-11-01] MEDS: ketorolac trometh 30MG/ML vial 30 MG/ML VIAL IV ONE ×2 (14:09→22:28)
--- NOTE | 2025-11-01 17:35 | CARDIOLOGY REPORT ---
APPROVED REPORT EXAM: Comprehensive 2D, Doppler, and color-flow Echocardiogram with saline. Patient Location: 401 Blood Pressure: 99/49 mmHg Heart Rate: 66 bpm Rhythm: Sinus Indications CVA/TIA NO FRONT FACER NO Previous ECHO 2D Dimensions LA Diam 3.7 cm IVSd 0.9 (0.7-1.1cm) LVDd 4.5 cm PWd 0.9 (0.7-1.1cm) IVSs 1.2 (0.8-1.2cm) LVDs 3.3 (2.5-4.0cm) PWs 1.1 (0.8-1.2cm) LVOT Diameter 1.89 (1.8-2.4cm) LVEF(%) 52.7 (>50%) Ao Asc Diam. 2.83 cm IVC 18.24 mm FS (%) 26.9 % SV 48.2 ml CO 3.2 L/min M-Mode Dimensions Left Atrium(MM) 3.96 (2.5-4.0cm) Aortic Root 2.81 (2.2-3.7cm) Aortic Cusp Exc 1.52 (1.5-2.0cm) MV EPSS 0.5 (<0.5cm) Aortic Valve AoV Peak [place]. 150.5 cm/s AoV VTI 35.0 cm AO Peak GR. 9.1 mmHg AO Mean GR. 6 mmHg LVOT VTI 29.12 cm LVOT Peak [place]. 118.0 cm/s BINA(VTI)/BSA 2.34 cm2/m2 BINA (VTI) 2.34 cm2 AV DI 0.83 % Mitral Valve MV E Velocity 109.5 cm/s MV Peak Gr. 7 mmHg MV DECEL TIME 204 ms MV A Velocity 75.7 cm/s MV PHT 88 ms E/A Ratio 1.4 MVA (PHT) 2.50 cm2 MV VMax 129.2 cm/s TDI Lateral E' P. V 13.23 cm/s E/Lateral E' 8.3 Tricuspid Valve TR P. Velocity 273 cm/s RAP ESTIMATE 10 mmHg TR Peak Gr. 30 mmHg RVSP 40 mmHg LEFT VENTRICLE Normal LV size and wall thickness. Overall systolic function is normal. Overall LVEF is about 60%. RIGHT VENTRICLE Right ventricle appears mildly dilated with normal function. ATRIA The left atrium size is normal. Saline study was performed with 3 IV injections of 10 ccs of agitated normal saline at rest, with cough, and with valsalva. Unable to determine Positive or Negative saline study for right to left flow due to poor image quality. AORTIC VALVE Trileaflet AV appears mildly sclerotic without stenosis. No insufficiency. MITRAL VALVE Mild mitral annular calcification without stenosis. Trace regurgitation by color and spectral flow Doppler. TRICUSPID VALVE The tricuspid valve is normal in structure with mild regurgitation by color and spectral flow Doppler. PULMONIC VALVE Pulmonic valve is grossly normal in structure with physiologic insufficiency by color and spectral flow Doppler. GREAT VESSELS The aortic root is normal in size. The ascending aorta is normal in size. The IVC is normal in size and collapses >50% with inspiration. PERICARDIUM Normal pericardium. No effusion. Other Information Study Quality: Fair due to body habitus. Conclusion Overall LVEF is about 60%. Normal LV size and wall thickness. Overall systolic function is normal. Saline study was performed with 3 IV injections of 10 ccs of agitated normal saline at rest, with cough, and with valsalva. Unable to determine Positive or Negative saline study for right to left flow due to poor image quality. Mild mitral annular calcification without stenosis. Trace regurgitation by color and spectral flow Doppler. The tricuspid valve is normal in structure with mild regurgitation by color and spectral flow Doppler. Pulmonic valve is grossly normal in structure with physiologic insufficiency by color and spectral flow Doppler. Normal pericardium. No effusion.
[2025-11-01] MEDS: enoxaparin 40mg/0.4ml syringe SUBCUT SCH (19:27)
[2025-11-01] MEDS: propranolol 10mg tablet PO PRN (19:31)
--- NOTE | 2025-11-01 20:06 | PROGRESS NOTE ---
Daily Progress Note Providers to CC ~ Antibiotic Timeout Antibiotic Ordered?: No Subjective The patient expressed that she had suicidal ideation this last night in his sitter was ordered I spoke with the patient this morning and she informed me that she is experiencing suicidal thoughts and is tired to have a migraine headaches frequently and is wanting to end it. I did speak to mental health about obtaining a psychiatric evaluation. The patient is on a 1799 in his sitter is ordered. The patient is experiencing a headache today that has severe I ordered IV Toradol 30 mg x 1 which significantly improved the patient has headache Objective Vital Signs Date Time Temp Pulse Resp B/P (MAP) Pulse Ox O2 Delivery O2 Flow Rate FiO2 11/01/25 18:30 78 11/01/25 18:10 145/64 (91) 149/76 (100) 149/80 (103) 11/01/25 15:09 16 11/01/25 10:00 97.8 98 Room Air 11/01/25 08:00 0.0 Result Diagram: 11/01/25 0611/01/25 0605 Gen. No acute distress alert and oriented 4 HEENT mild left eyelid palsy Lungs clear to ascultation bilaterally, no wheezes rales or rhonchi appreciated Heart normal sinus rhythm no murmurs rubs or clicks noted Abdomen soft nontender bowel sounds are normoactive Lower extremities no clubbing cyanosis, nor edema appreciated bilaterally Neuro muscle strength is 5/5 in the upper and lower extremities on the right, 4+/5 for the upper extremities on the left Coagulation Studies Laboratory Tests Test 10/31/25 16:01 Prothrombin Time 10.5 SECONDS (9.0-12.0) INR International Normalized Ratio 1.0 INR Activated Partial Thromboplast Time 29 SECONDS (22-32) Coagulation Comments Problem\Assessment\Plan Problems/Diagnosis: (1) Left-sided weakness # left-sided hemiplegia with left eyelid palsy Possibly secondary to hemiplegic migraine however the patient does not have a headache with this episode which is not consistent with prior episodes Tele neurology consult has been obtained awaiting neurologists documentation Head CT scan was negative CTA of the head and neck were negative for any large vessel occlusion aneurysmal dilatation or dissection MRI of the head is ordered Physical therapy Echocardiogram with bubble study was unremarkable 11/01 improving # 2.8 cm left thyroid nodule/ enlargement on CTA Thyroid ultrasound # hypokalemia On potassium replacement protocol # bipolar disorder # anxiety # PTSD Awaiting med reconciliation # asthma not in acute exacerbation Monitor for any respiratory distress and add nebulizer treatments if needed. # suicidal ideation 1799.11 Sitter Awaiting mental health evaluation # DVT prophylaxis SCDs Date of Service: Nov 01, 2025 Billing Provider: HEATHER CASTAÑEDA DO Common Visit Codes: [id number] INP/OBS CARE(HIGH) HEATHER CASTAÑEDA DO Nov 01, 2025 20:06
[2025-11-02 00:59] VITALS: BP_SYST 89; BP_SYST 92; BP_SYST 95; BP_DIAS 47; BP_DIAS 54; BP_DIAS 55; PULSE 61; PULSE 71; PULSE 87
[2025-11-02 06:00] VITALS: BP 92/50; PULSE 56; RESP 15; TEMP 97.8; O2SAT 98
[2025-11-02] MEDS: ketorolac trometh 30MG/ML vial 30 MG/ML VIAL IV ONE (06:02)
[2025-11-02 06:20] LABS: MEAN PLATELET VOLUME 9.8 FL (7.4-10.4); RED CELL DISTRIBUTION WIDTH 13.6 % (11.5-14.5)
[2025-11-02 06:24] LABS: CREATININE 0.75 MG/DL (0.40-0.90); TOTAL CARBON DIOXIDE 24.4 MMOL/L (24-32); eCRCL 86 ML/MIN; eGFR 84 ML/MIN
[2025-11-02 08:00] VITALS: BP_SYST 111; BP_SYST 114; BP_SYST 98; BP_DIAS 53; BP_DIAS 66; BP_DIAS 72; PULSE 69; PULSE 74
--- NOTE | 2025-11-02 08:26 | RADIOLOGY REPORT ---
ULTRASOUND SOFT TISSUE HEAD AND NECK CLINICAL INDICATION: 2.8 cm left thyroid nodule on CTA TECHNIQUE: Multiple real time sonographic images of the thyroid were obtained. COMPARISON: CT CTA NECK/HEAD on DOS: 10/31/25 FINDINGS: The right lobe measures 3.7 x 1.7 x 1.5 cm The left lobe measures 4.9 x 2.2 x 2.4 cm The isthmus measures 0.3 cm NODULES: RIGHT LOBE NODULES: Nodule location: Right Dimensions: 1.5 x 1.0 x 0.8 cm Composition: Solid or almost completely solid (2) Echogenicity: Hypoechoic (2) Shape: Wider than tall (0) Margin: Smooth (0) Echogenic foci: None or large comet tail artifacts (0) TI-RADS Category: TR4 Recommendation: FNA Nodule location: Right Dimensions: 1.6 x 1.6 x 1.1 cm Composition: Mixed cystic and solid (1) Echogenicity: Hyperechoic or isoechoic (1) Shape: Wider than tall (0) Margin: Smooth (0) Echogenic foci: None or large comet tail artifacts (0) TI-RADS Category: TR2 Recommendation: No follow-up LEFT LOBE NODULES: Nodule location: Left Dimensions: 3.3 x - x 2.6 cm Composition: Mixed cystic and solid (1) Echogenicity: Hyperechoic or isoechoic (1) Shape: Wider than tall (0) Margin: Smooth (0) Echogenic foci: None or large comet tail artifacts (0) TI-RADS Category: TR2 Recommendation: No follow-up Nodule location: Left Dimensions: - x 3.3 x - cm Composition: Mixed cystic and solid (1) Echogenicity: Hyperechoic or isoechoic (1) Shape: Wider than tall (0) Margin: Smooth (0) Echogenic foci: None or large comet tail artifacts (0) TI-RADS Category: TR2 Recommendation: No follow-up IMPRESSION: 1. FNA is recommended for the following: - Right nodule measuring 1.5 x 1.0 x 0.8 cm.
--- NOTE | 2025-11-02 09:16 | [facility] CONSULT REPORT ---
[facility] [place] Note # Demographics Consult Type: Acute Stroke Level 1 (0-4.5 hrs) Patient Location: Emergency Room First Name: BRIDGER Last Name: PAULINA Date of : 1980 Age: 45 Gender: Female Facility: [facility] Time of Initial Page (): 10/31/2025 15:53 First Contact with Site (): 10/31/2025 15:53 # HPI History: 45 y/o F with Hx of hemiplegic migraines affecting the left side of her body took abortive migraine therapy today and then developed Lt facial pain and weakness and Lt arm and leg weakness with onset at 4PM. # Scores Time of exam and NIHSS (): 10/31/2025 15:58 Level of Consciousness 1a: [0] = Alert; keenly responsive LOC Questions 1b: [0] = Answers both questions correctly LOC Commands 1c: [0] = Performs both tasks correctly Best Gaze 2: [0] = Normal Visual 3: [0] = No visual loss Facial Palsy 4: [1] = Minor paralysis Motor Arm Left 5a: [0] = No drift Motor Arm Right 5b: [0] = No drift Motor Leg Left 6a: [1] = Drift Motor Leg Right 6b: [0] = No drift Limb Ataxia 7: [0] = Absent Sensory 8: [1] = Cjlo-ne-ajsbnkxm sensory loss Best Language 9: [0] = No aphasia Dysarthria 10: [0] = Normal Extinction and Inattention 11: [0] = No abnormality NIHSS Total: 3 # Data Time Head CT personally read by me (): 10/31/2025 15:[address]: negative for acute changes # Assessment Impression: - Migraine (Complex) # Plan Thrombolytic/Intervention: NOT IV Thrombolysis or IA Intervention candidate Thrombolytic Exclusion (< 3 hour window): - non-disabling deficit Intraarterial Exclusion: - clinical exam not consistent with presence of large vessel occlusion (LVO), can reconsider if LVO found on vascular imaging Thrombolytic/Intraarterial Exclusion: - IV thrombolytic and IA intervention considered but not recommended as this patient's symptoms are not clinically consistent with an assumed diagnosis of stroke Imaging: (urgency: STAT): - CT Angiogram Head and CT Angiogram Neck AND call back with results if abnormal Imaging: (urgency: routine): - MRI Brain without contrast Diagnostic Test: EKG Therapy/Evaluation: - PT/OT evaluation Medication: - migraine cocktail: Toradol 30 mg IV + Benadryl 25 mg IV + antiemetic IV Other: - If patient has any neurological deterioration please call me back immediately Additional Recommendations: Avoid triptan medications # Logistics Attestation of consult completion: The patient is located at: [facility]. Facility staff participated in the visit. I performed this telemedicine visit from my offsite office utilizing interactive 2 way audio and visual telecommunication technology at the request of the onsite emergency room provider. Total time spent in telemedicine encounter: I spent 20 minutes reviewing clinical data and/or imaging, obtaining history, examining the patient, communicating with the onsite care team, and in preparation of this report. # Demographics First Name: BRIDGER Last Name: PAULINA Facility: [facility] Electronically signed at 10/31/2025 16:07 ([place] Time) by Steffi Call DO
[2025-11-02 10:00] VITALS: BP 98/53; PULSE 65; RESP 23; TEMP 97.8; O2SAT 98
--- NOTE | 2025-11-02 13:48 | CONSULTATION REPORT ---
History of Present Illness Providers to CC ~ Reason for Admit\\Admit Dx: Left hemiplegia Refering MD: MARY WHITE History of Present Illness This is a 45-year-old female who has a four year history of hemiplegic migraine headaches. She recieved botox therapy for her migraines and developed left facial pain and weakness after and was subsequently admitted to the hospital. Since then the patient has expressed suicidal ideation to staff and psychiatric evaluation was ordered. The patient is on a 1799 and has sitter is ordered. Allergies: Coded Allergies: No Known Allergies (Unverified , 09/21/25) Home Medications Home Medications Active Nurtec Odt (Rimegepant Sulfate) 75 Mg Tab.rapdis 1 Tab PO QDAY PRN PRN 30 Days Reported Diclofenac Sodium 75 Mg Tablet.dr 1 Tab PO BID Prazosin Hcl 1 Mg Capsule 2-3 Cap PO HS PRN [lorazepam] .5 0.5 Mg PO TID PRN Propranolol Hcl 20 Mg Tablet 1 Tab PO TID PRN Vraylar (Cariprazine Hydrochloride) 3 Mg Capsule 1 Cap PO DAILY Atomoxetine HCl 25 Mg Capsule 1 Cap PO QAM LaMICtal tablet (Lamotrigine) 100 Mg Tablet PO Spironolactone 50 Mg Tablet 1 Tab PO BID Escitalopram Oxalate 20 Mg Tablet 20 Mg PO DAILY Vyvanse (Lisdexamfetamine Dimesylate) 20 Mg Capsule 1 Cap PO QAM Meloxicam 15 Mg Tablet 1 Tab PO DAILY Past Family History Family History: FH: migraine headache MOTHER, Onset:Unknown Maternal grandmother, Onset:Unknown Maternal grandfather, Onset:Unknown FH: thyroid cancer maternal aunt, Onset:50's - 60 FH: thyroid condition MOTHER, Onset:Unknown Physical Exam Last Vital Signs Recorded: Temperature: 97.8, Source: Oral, Heart Rate: 65, Respiratory Rate: 23, BP: 98/53, Pulse Oximetry: 98, Weight: 108.500 Review of Systems ROS ROS Comments: Mood: depressed Sleep: increased Interest: decreased Feels: helpless Energy: decreased Anxiety: chronic PTSD: chronic Suicidal-Ideation this week since pain has started, no plan, at current no access to weapons Homicidal-denies Marquita-none noted Hallucinations: denies Hx of SI-states had ideations at times as a teenager Results Diagram Lab Result Diagram: 11/02/25 0538 11/02/25 0538 Assessment/Plan Problems/Diagnosis: (1) Hemiplegic migraine (2) Suicidal ideation (3) Bipolar II disorder, moderate, depressed, with anxious distress (4) SONY (generalized anxiety disorder) (5) PTSD (post-traumatic stress disorder) Additional Plan Assessment/Plan: Upon assessment, patient awake, alert and oriented lying in bed resting. During interviewing, patient endorses suicidal ideation in the context of uncontrolled pain, stating these thought are due to pain and not reflective of her baseline mental state. She reports recent onset of ideation started with this hospitalization, and she has no active plan or intent. Patient states "if she can get her pain under control then she will be fine again". Asked about prior SI history, patient denies, states as a teenager she had ideas but never a plan or attempt. Patient has a past psychiatric history of Bipolar 2, anxiety binge eating and PTSD which have been well managed for several years on current meds and has been medication compliant. Patient denies any recent medications changes to current psych meds and denies any side effects. Plan/Recommendations: -Continue meds on current doses; Propranolol 20mg TID PRN-anxiety Lexapro 20mg daily Vyvanse 20mg Q am Vraylar 3mg daily Patient has been well managed for years prior and during migraine episodes and discontinuing can lead to rebound psychosis and/or worsening of current symptoms. -Pain management, as this is the primary driver/merchandiser of her current SI -Safety: Continue to monitor for changes in suicidal ideation. 1:1 sitter if suicidal ideation or behavior escalates, psych will continue to follow up. Thank you for involving psychiatry in this patient's care. We appreciate your collaboration. - Visit Coding Cardiology Date of Service: Nov 02, 2025 Billing Provider: EDUARD SONI NP Cardiology Evaluation and Orin: CONSULT ONLY (Psych consult, not cardiology) EDUARD SONI NP Nov 02, 2025 13:48
[2025-11-02] MEDS: magnesium hydroxide 30ml (MOM) UD suspension PO PRN (14:36)
--- NOTE | 2025-11-02 17:30 | RADIOLOGY REPORT ---
CT HEAD WITHOUT CONTRAST HISTORY: Evaluate for an acute infarct. COMPARISON: CT CTA NECK/HEAD on DOS: 10/31/25, CT CT STROKE ALERT on DOS: 10/31/25, CT STROKE ALERT on DOS: 01/29/23 CONTRAST: Study was performed without contrast. TECHNIQUE: Axial images from the skull base to the vertex with coronal and sagittal reformatted images. This exam was performed according to our departmental dose optimization program. Up-to-date CT equipment and radiation dose reduction techniques are utilized as appropriate. DOSE: CTDIvol: 59.6 mGy; DLP: 1065.3 mGy-cm. FINDINGS: BRAIN PARENCHYMA: No acute hemorrhage, large vascular territory infarct, or mass effect. White matter is within normal limits for age. VENTRICLES/EXTRA-AXIAL SPACES: No evidence of hydocephalus. No extra-axial collection. Basal cisterns are patent. EXTRACRANIAL STRUCTURES: No acute or suspicious ossues abnormality. Normal soft tissues. Moderate polypoid mucosal thickening of the right maxillary sinus and minimal polypoid mucosal thickening of the left maxillary sinus. Trace right mastoid tip effusion. Left mastoid air cells are clear. Orbits are unremarkable. IMPRESSION: No acute intracranial abnormality.
[2025-11-02 18:00] VITALS: BP 103/54; PULSE 63; RESP 16; TEMP 98.6; O2SAT 98
--- NOTE | 2025-11-02 18:55 | DISCHARGE SUMMARY ---
Discharge Summary Providers to CC ~ Discharge Summary Admission Diagnosis: LEFT FACIAL NEUROPATHY Hospital Course DATE OF ADMISSION: 10/31/2025 DATE OF DISCHARGE: 11/02/2025 Discharge Diagnosis\Comment: Left-sided hemiplegia with left eye lid palsy likely secondary to atypical hemiplegic migraine, thyroid nodule, hypokalemia, asthma not in acute exacerbation, bipolar disorder/generalized anxiety disorder/PTSD Operations\Procedures: None Consultants: security system sales consultant Laura Wyatt, tele neurologist Dr. Annie Call Complications: None Condition on DC: Stable Continued Medications: Atomoxetine HCl (Atomoxetine HCl) 25 Mg Capsule 1 CAP PO QAM Cariprazine Hydrochloride (Vraylar) 3 Mg Capsule 1 CAP PO DAILY Diclofenac Sodium (Diclofenac Sodium) 75 Mg Tablet.dr 1 TAB PO BID Escitalopram Oxalate (Escitalopram Oxalate) 20 Mg Tablet 20 MG PO DAILY, TAB Lamotrigine (LaMICtal tablet) 100 Mg Tablet PO Lisdexamfetamine Dimesylate (Vyvanse) 20 Mg Capsule 1 CAP PO QAM [lorazepam] () .5 0.5 MG PO TID PRN for anxiety Meloxicam (Meloxicam) 15 Mg Tablet 1 TAB PO DAILY Prazosin Hcl (Prazosin Hcl) 1 Mg Capsule 2-3 CAP PO HS PRN for insomnia Propranolol Hcl (Propranolol Hcl) 20 Mg Tablet 1 TAB PO TID PRN for panic attack Rimegepant Sulfate (Nurtec Odt) 75 Mg Tab.rapdis 1 TAB PO QDAY PRN PRN for migraine for 30 Days, #8 TAB 0 Refills Spironolactone (Spironolactone) 50 Mg Tablet 1 TAB PO BID Discharge Summary: I admitted Mrs Acevedo with the following HPI: This is a 45-year-old female who has a four year history of hemiplegic migraine headaches. She gets a couple of episodes a month they typically last 15 minutes to a few hours she is to the point where she is getting Botox injections for these headaches monthly. The patient has not noticed today's symptoms are slightly different than her typical headaches for one she does not have a headache with the episode she also mentions that she typically has a numbness on the left side of her face and that her extremities are not affected (accept for one prior episode) today the headache started at 2:00 p.m. and is affecting the left side of her face where she noticed initially noticed itching and then pins and needle sensation followed by inability open her left eye as well as a weakness in her left upper and lower extremity which has persisted. The patient is also mentioned that the onset of her symptoms today were faster than her prior episodes. Tele neurologist evaluated the patient and recommended ordering an MRI of the head. A CTA of the head is negative for any acute CVA. The patient is echocardiogram demonstrated an LVEF of 60% the bubble study was indeterminate. The patient is left-sided hemiplegia and eyelid palsy improved modestly on the by the afternoon of the when I rounded on the patient her symptoms had resolved. Are MRI is broken and we are unable to obtain a repeat MRI however ordered a head CT scan in the early evening of the which was negative for any acute findings. PT evaluated the patient the patient did well with physical therapy there was no limitations and there were concerns by Physical therapy. The patient had voiced suicidal ideation on the late evening of the and a sitter was placed and I ordered a 1799.11 hold on the morning of the the psychiatric provider CERTIFIED WELLNESS PROGRAM COORDINATOR Laura Wyatt evaluated the patient and informed me that the patient did express suicidal ideation however she was essentially just tired and exhausted from having these severe migraine episodes and felt that the patient did not need to be on hold. Laura also informed me that since the patient is on multiple medications and has been on these for years that no medical medication changes are recommended at this time. The patient was significantly less depressed when I saw her. On the . The patient has a 1.5 x 1.0 x 0.8 cm right thyroid nodule and it is recommended that the patient follow up for an FNA I did inform the patient of this finding and did included in the discharge instructions for the patient that she will need her primary care provider to refer to Interventional Radiology for an FNA. The patient did have hypokalemia during hospitalization which the patient is on a potassium replacement protocol on the serum potassium of 3.3 this improved and was 3.6 on the . The patient has pzb-[id number] diabetes mellitus her blood sugars were controlled during hospitalization. The patient has asthma which is chronic and not in acute exacerbation that has no respiratory distress during hospitalization Gen. No acute distress alert and oriented 4 Lungs clear to ascultation bilaterally, no wheezes rales or rhonchi appreciated Heart normal sinus rhythm no murmurs rubs or clicks noted Abdomen soft nontender bowel sounds are normoactive Lower extremities no clubbing cyanosis, nor edema appreciated bilaterally The patient felt ready to be discharged and was medically cleared to be discharged on 11/02/2025 The patient was seen and evaluated on day of discharge. Time spent on discharge 40 minutes *Problems/Diagnosis: (1) Hemiplegic migraine Status: Acute Total Time Spent on D/C: > 30 Minutes Date of Service: Nov 02, 2025 Billing Provider: HEATHER CASTAÑEDA DO Common Visit Codes: 08419-KIX/OBS DISCH DAY >30min HEATHER CASTAÑEDA DO Nov 02, 2025 18:55
== END 2025-11-02 19:00 | disposition home or self-care (01) | DRG 54 ==
LOC: ER 15:36 → ED HOLD 17:50 → ORTHO 4S 11-01 00:10
PROVIDERS: ADMIT Family Medicine; ATTEND Family Medicine
PROC: B3251ZZ Computerized Tomography (CT Scan) of Bilateral Common Carotid Arteries using Low Osmolar Contrast (ICD-10-PCS; principal; 2025-10-31)
PROC: B32G1ZZ Computerized Tomography (CT Scan) of Bilateral Vertebral Arteries using Low Osmolar Contrast (ICD-10-PCS; 2025-10-31)
PROC: B32R1ZZ Computerized Tomography (CT Scan) of Intracranial Arteries using Low Osmolar Contrast (ICD-10-PCS; 2025-10-31)
PROC: B3281ZZ Computerized Tomography (CT Scan) of Bilateral Internal Carotid Arteries using Low Osmolar Contrast (ICD-10-PCS; 2025-10-31)
DX: G43.409 Hemiplegic migraine, not intractable, without status migrainosus (principal); G83.89 Other specified paralytic syndromes; J45.909 Unspecified asthma, uncomplicated; E04.1 Nontoxic single thyroid nodule; F31.81 Bipolar II disorder; R45.851 Suicidal ideations; E87.6 Hypokalemia; F41.1 Generalized anxiety disorder; F43.10 Post-traumatic stress disorder, unspecified; Z79.899 Other long term (current) drug therapy; Z90.710 Acquired absence of both cervix and uterus
CPT/HCPCS: 36415; 70450; 70496; 70498; 71045; 76536; 80048; 80305; 81003; 82948; 84484; 85025; 85610; 85730; 87081; 93005; 93306; 96361; 96374; 96375; 97110; 97116; 97161; 99285; G0378; J0780; J1650; J1885; J7030; Q9967